=== PATIENT | female | born 1980 | race Caucasian/White ===

== ENCOUNTER 2023-11-01 20:50 | Outpatient (REF) | payer SELFPAY ==
[2023-11-07 11:09] LABS: Age Gdln ACOG Testing Note (.); HPV Aptima Negative (Negative); IGP, Aptima HPV, rfx 16/18,45 Note (.)
== END 2023-11-01 20:51 | disposition home or self-care (01) ==
LOC: LAB 20:50
PROVIDERS: PCP Family Medicine; Visit Provider Obstetrics & Gynecology
DX: Z01.419 Encounter for gynecological examination (general) (routine) without abnormal findings (principal)
CPT/HCPCS: 87624; G0145

== ENCOUNTER 2023-11-17 10:03 | Outpatient (OUT) | payer BC, SELFPAY ==
--- NOTE | 2023-11-17 10:09 | US_ITS ---
The [address] [address] Patient Name: CHANDRAKANT COLIN MRN: [id number] date: 1980 Sex: F Assigned Patient Location: US Current Patient Location: US Accession/Order Number: [id number] Exam Date: 11/17/2023 10:10 Report Date: 11/17/2023 12:09 At the request of: TERESITA ANDRE Procedure: US pelvis w/ transvaginal EXAMINATION: US pelvis w/ transvaginal HISTORY: Periumbilical Abdominal Pain R10.33 COMPARISON: No relevant comparison available. FINDINGS: Transabdominal and transvaginal images The uterus is surgically absent. The right ovary measures 3.8 x 2.5 x 3.4 cm. Normal color and Doppler flow. Area of anechoic echogenicity measuring 3.0 x 2.2 x 2.4 cm with no internal echoes. A simple cyst is favored. Additional areas of anechoic echogenicity likely follicles. The left ovary is normal in appearance measuring 2.3 x 1.5 x 1.3 cm. Normal color Doppler flow No free fluid. US/US pelvis w/ transvaginal IMPRESSION: 3 cm right ovarian simple cyst Electronically authenticated by: JOHANNA CASTILLO Date: 11/17/2023 12:09
--- NOTE | 2023-11-17 10:42 | MM_ITS ---
Patient Name: CHADNRAKANT COLIN MR#: [id number] : 1980 Exam Date: 11/17/2023 Ordering Doctor: DR Valentín Navarro . RADIOLOGY REPORT PROCEDURE: MM TOMOSYNTHESIS SCREENING BI COMPARISON: None. INDICATIONS: Screening Calculator Name NCI Breast Cancer Risk Assessment Tool 5 Year Breast Cancer Risk 0.50% Lifetime Breast Cancer Risk 8.20% Personal Breast Cancer No Personal Ovarian Cancer No Treatments None Family Cancers None LOCATION: [facility] BREAST COMPOSITION: There are scattered areas of fibroglandular density. FINDINGS: DIAGNOSTIC CATEGORY 0--INCOMPLETE: NEED ADDITIONAL IMAGING EVALUATION. Scattered benign-appearing calcifications are present. Scattered benign-appearing lymph nodes are present. RIGHT BREAST: 5 mm lobular circumscribed nodule identified in the upper inner quadrant anterior right breast. Spot imaging and ultrasound follow-up is recommended. LEFT BREAST: No significant suspicious finding. RECOMMENDATIONS: ADDITIONAL MAMMOGRAPHIC VIEWS REQUIRED: RIGHT BREAST - spot compression ULTRASOUND: RIGHT BREAST PLEASE NOTE: A NORMAL MAMMOGRAM DOES NOT EXCLUDE THE POSSIBILITY OF BREAST CANCER. A CLINICALLY SUSPICIOUS PALPABLE LUMP SHOULD BE BIOPSIED. Dictated by: Catracho Castro MD on 11/17/2023 at 12:18 Approved by: Catracho Castro MD on 11/17/2023 at 12:20
== END 2023-11-17 10:04 | disposition home or self-care (01) ==
LOC: US 10:03
PROVIDERS: PCP Family Medicine; Visit Provider Obstetrics & Gynecology
DX: R10.33 Periumbilical pain (principal); Z12.31 Encounter for screening mammogram for malignant neoplasm of breast; R61 Generalized hyperhidrosis; N63.12 Unspecified lump in the right breast, upper inner quadrant; N83.291 Other ovarian cyst, right side
CPT/HCPCS: 76830; 76856; 77063; 77067

== ENCOUNTER 2023-12-15 09:28 | Outpatient (OUT) | payer BC, SELFPAY ==
--- NOTE | 2023-12-15 09:32 | US_ITS ---
Patient Name: CHANDRAKANT COLIN MR#: [id number] : 1980 Exam Date: 12/15/2023 Ordering Doctor: DR Valentín Navarro . RADIOLOGY REPORT PROCEDURE: MM DIAGNOSTIC MAMMO UNILAT RT, 12/15/2023, 09:33 US BREAST RT LIMITED, 12/15/2023, 10:49 COMPARISON: MM TOMOSYNTHESIS SCREENING BI, 11/17/2023. INDICATIONS: Abnormal Mammogram R92.8 Calculator Name NCI Breast Cancer Risk Assessment Tool 5 Year Breast Cancer Risk 0.50% Lifetime Breast Cancer Risk 8.20% Personal Breast Cancer No Personal Ovarian Cancer No Treatments None Family Cancers None LOCATION: [facility] BREAST COMPOSITION: There are scattered areas of fibroglandular density. FINDINGS: DIAGNOSTIC CATEGORY 3--PROBABLY BENIGN FINDING. THE FOLLOWING FINDING(S) HAS A HIGH PROBABILITY OF A BENIGN ETIOLOGY: RIGHT BREAST: Spot magnification views demonstrate persistence of a 5 mm lobular mass within the lower-inner quadrant. Ultrasound evaluation demonstrates a lobular anechoic cystic appearing structure at the 3 o'clock position, 4 x 4 x 3 mm. Given its slightly lobular margins, ultrasound follow-up evaluation in 6 months is recommended to document stability. RECOMMENDATIONS: SHORT TERM FOLLOW-UP ULTRASOUND RIGHT BREAST IN 6 MONTHS. PLEASE NOTE: A NORMAL MAMMOGRAM DOES NOT EXCLUDE THE POSSIBILITY OF BREAST CANCER. A CLINICALLY SUSPICIOUS PALPABLE LUMP SHOULD BE BIOPSIED. Dictated by: Javi Vail M.D. on 12/15/2023 at 14:12 Approved by: Javi Vail M.D. on 12/15/2023 at 14:17
--- OUTSIDE RECORDS SUMMARY | 2023-12-15 09:43 | XMS_ITS ---
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 Phone DR ANGELA PORTILLO Attending Unavailable BANDAR, DR ANGELA Clinton Consulting Unavailable BANDAR, DR ANGELA Clinton Primary Care Unavailable BANDAR, DR ANGELA Clinton Admitting Unavailable TERESITA ANDRE Attending Unavailable Encounters Encounter Date Encounter Type Care Provider Facility Start: 11-01-2023 End: 11-01-2023 ambulatory TERESITA ANDRE Not Available Start: 08-10-2022 Encounter for genera l adult medical examination without abnormal findings DR ANGELA PORTILLO [facility] Start: 08-09-2022 End: 08-10-[address] ANGELA PORTILLO Facility:[facility] Start: 08-09-2022 End: 08-10-2022 Encounter for general adult medical examination without abnormal findings DR ANGELA PORTILLO Facility:[facility] Payers Date Payer Category Payer Unknown [id number] 1980 Unknown [id number] 1980 Unknown [id number] 1957 Unknown [id number] Problems Problem Classification Problem Date Documented Da te Episodic/Chronic Coagulation and hemorrhagic disorders (1 source) Spontaneous ecchymoses; Translations: [SPONTANEOUS ECCHYMOSES] Onset: 08-10-2022 Episodic Residual codes; unclassified (1 source) Flushing; Translations: [FLUSHING] Onset: 08-10-2022 Episodic Results Test Name Value Interpretation Reference Range Facil ity FOREIGN by IFAon 08-11-2022 Antinuclear Antibodies, IFA Negative Normal [facility] Comment on above: Result Comment: Nega tive <1:80 Borderline 1:80 Positive >1:80 ICAP nomenclature: AC-0 For more information about Hep-2 cell patterns use ANApatterns.org, the official website for the International Consensus on Antinuclear Antibody (FOREIGN) Patterns (ICAP). Performed By: #### [facility] #### [facility] [address] [place] [address] Dr. Alba Valdivia ESTRONEon 08-11-2022 Estrone, Serum 47 pg/mL Normal 27-231 [facility] Comment on above: Result Comment: Rang e Adult (Premenopausal) 27 - 231 Menstrual Cycle (1-10 days) 19 - 149 Menstrual Cycle (11-20 days) 32 - 176 Menstrual Cycle (21-30 days) 37 - 200 Performed By: #### Hemal HAYNES #### [facility] [address] [place] [address] Dr. Alba Valdivia DHEA-SULFATEon 08-10-2022 DHEA-Sulfate 225.0 ug/dL Normal 57.3-279.2 [facility] Comment on above: Performed By: #### L [facility] #### [facility] [address] [place] [address] Dr. Alba Valdivia ESTRADIOLon 08-10-2022 Estradiol 119.0 pg/mL Normal [facility] Comment on above: Result Comment: Adul t Female: Follicular phase 12.5 - 166.0 Ovulation phase 85.8 - 498.0 Luteal phase 43.8 - 211.0 Postmenopausal <6.0 - 54.7 1st trimester 215.0 - >4300.0 [employer] ECLIA methodology Performed By: #### E STRADI #### [facility] [address] [place] [address] Dr. Alba Valdivia FSHon 08-10-2022 FSH 13.5 mIU/mL Normal [facility] Comment on above: Result Comment: Adul t Female: Follicular phase 3.5 - 12.5 Ovulation phase 4.7 - 21.5 Luteal phase 1.7 - 7.7 Postmenopausal 25.8 - 134.8 Performed By: #### L MATEO #### [facility] [address] [place] [address] Dr. Alba Valdivia LUTEINIZING HORMONE (LH)on 0 1-25-2023 LH 8.3 mIU/mL Normal [facility] Comment on above: Result Comment: Adul t Female: Follicular phase 2.4 - 12.6 Ovulation phase 14.0 - 95.6 Luteal phase 1.0 - 11.4 Postmenopausal 7.7 - 58.5 Performed By: #### L BCLH #### [facility] [address] [place] [address] Dr. Alba Valdivia PROLACTINon 08-10-2022 Prolactin 10.9 ng/mL Normal 4.8-23.3 [facility] Comment on above: Performed By: #### P ROLAC #### [facility] [address] [place] [address] Dr. Alba Valdivia TESTOSTERONE, TOTALon 2022 Testosterone [Mass/Vol] 28 ng/dL Normal 8-60 [facility] Comment on above: Performed By: #### T ESTTOT #### [facility] [address] [place] [address] Dr. Alba Valdivia CBC AUTO DIFFon 08-09-2022 BASO # 0.1 103/ul Normal 0.0-0.1 [facility] Comment on above: Performed By: #### C BC #### [facility] [address] [place] [address] Dr. Alba Valdivia Basophils/100 WBC (Bld) 0.5 % Normal 0.2-2.0 [facility] Comment on above: Performed By: #### C BC #### [facility] [address] [place] [address] Dr. Alba Valdivia EO # 0.2 103/ul Normal 0.0-0.7 [facility] Comment on above: Performed By: #### C BC #### [facility] [address] [place] [address] Dr. Alba Valdivia Eosinophils/100 WBC (Bld) 1.6 % Normal 0.9-7.0 [facility] Comment on above: Performed By: #### C BC #### [facility] [address] [place] [address] Dr. Alba Valdivia Erythrocyte distribution width (RBC) [Ratio] 13.1 % Normal 11.0-15.0 [facility] Comment on above: Performed By: #### C BC #### [facility] [address] [place] [address] Dr. Alba Valdivia Hematocrit (Bld) [Volume fraction] 36.6 % Normal 36.0-48.0 [facility] Comment on above: Performed By: #### C BC #### [facility] [address] [place] [address] Dr. Alba Valdivia Hemoglobin (Bld) [Mass/Vol] 12.9 g/dL Normal 12.0-16.0 [facility] Comment on above: Performed By: #### C BC #### [facility] [address] [place] [address] Dr. Alba Valdivia IG # 0.03 10e3/ul Normal 0.00-0.03 [facility] Comment on above: Performed By: #### C BC #### [facility] [address] [place] [address] Dr. Alba Valdivia IG % 0.3 % Normal 0.0-0.5 [facility] Comment on above: Performed By: #### C BC #### [facility] [address] [place] [address] Dr. Alba Valdivia LYMPH # 3.1 103/ul Normal 1.2-3.8 [facility] Comment on above: Performed By: #### C BC #### [facility] [address] [place] [address] Dr. Alba Valdivia Lymphocytes/100 WBC (Bld) 27.4 % Normal 20.5-60.0 [facility] Comment on above: Performed By: #### C BC #### [facility] [address] [place] [address] Dr. Alba Valdivia MANUAL DIFF REQ NO Normal [facility] Comment on above: Performed By: #### C BC #### [facility] [address] [place] [address] Dr. Alba Valdivia MCH (RBC) [Entitic mass] 33.2 pg Normal 26.7-34.0 [facility] Comment on above: Performed By: #### C BC #### [facility] [address] [address] [address] Alba Valdivia MCHC (RBC) [Mass/Vol] 35.2 g/dL Normal 29.9-35.2 [facility] Comment on above: Performed By: #### C BC #### [facility] [address] [address] [address] Alba Valdivia MCV (RBC) [Entitic vol] 94.1 fL Normal 81.0-99.0 [facility] Comment on above: Performed By: #### C BC #### [facility] [address] [address] [address] Alba Valdivia MONO # 0.6 103/ul Normal 0.3-0.8 [facility] Comment on above: Performed By: #### C BC #### [facility] [address] [address] [address] Alba Valdivia Monocytes/100 WBC (Bld) 4.9 % Normal 1.7-12.0 [facility] Comment on above: Performed By: #### C BC #### [facility] [address] [address] [address] Alba Valdivia NEUT # 7.4 103/ul Critically high 1.4-6.5 [facility] Comment on above: Performed By: #### C BC #### [facility] [address] [address] [address] Alba Valdivia Neutrophils/100 WBC (Bld) 65.3 % Normal 43.0-75.0 [facility] Comment on above: Performed By: #### C BC #### [facility] [address] [address] [address] Alba Valdivia Platelet mean volume (Bld) [Entitic vol] 8.8 fL Critically low 9.5-13.5 [facility] Comment on above: Performed By: #### C BC #### [facility] [address] [address] [address] Alba Valdivia PLT 367 103/ul Normal 150-450 [facility] Comment on above: Performed By: #### C BC #### [facility] [address] [address] [address] Alba Valdivia RBC 3.89 106/ul Critically low 4.20-5.40 [facility] Comment on above: Performed By: #### C BC #### [facility] [address] [address] [address] Alba Valdivia WBC 11.3 103/ul Critically high 4.0-11.0 [facility] Comment on above: Performed By: #### C BC #### [facility] [address] [address] [address] Alba Valdivia CRPon 08-09-2022 CRP [Mass/Vol] mg/L Normal <=1.0 [facility] Comment on above: Performed By: #### L BCFSH #### [facility] [address] [address] [address] Alba Valdivia FREE T3on 08-09-2022 FREE T3 2.31 pg/mlL Normal 2.18-3.98 [facility] Comment on above: Performed By: #### L BCFSH #### [facility] [address] [place] [address] Dr. Alba Valdivia FREE T4on 08-09-2022 Free T4 [Mass/Vol] 0.99 ng/dL Normal 0.76-1.46 [facility] Comment on above: Performed By: #### F T4 #### [facility] [address] [address] [address] Alba Valdivia GLYCOHEMOGLOBIN A1Con 2022 ADA RECOMMENDATION SEE BELOW Normal [facility] Comment on above: Result Comment: ADA RECOMMENDED LIMIT 4.0 - 6.0 ADA THERAPEUTIC TARGET < 7.0 ACTION SUGGESTED > 7.0 Performed By: #### A 1C #### [facility] [address] [place] [address] Dr. Alba Valdivia Glucose [Mass/Vol] 103 mg/dL Normal [facility] Comment on above: Performed By: #### A 1C #### [facility] [address] [address] [address] Alba Valdivia HbA1c (Bld) [Mass fraction] 5.2 % Normal 4.5-6.2 [facility] Comment on above: Performed By: #### A 1C #### [facility] [address] [address] [address] Alba Valdivia LIPID PROFILEon 08-09-2022 CHOL-HDL RATIO NORM SEE BELOW Normal [facility] Comment on above: Result Comment: 3.3 - 4.4 LOW RISK 4.4 - 7.1 AVERAGE RISK 7.1 - 11.0 MODERATE RISK >11.0 HIGH RISK Performed By: #### L BCFSH #### [facility] [address] [address] [address] Alba Valdivia Cholesterol [Mass/Vol] 126 mg/dL Normal <=200 [facility] Comment on above: Performed By: #### L BCFSH #### [facility] [address] [address] [address] Alba Valdivia Cholesterol in HDL [Mass/Vol] 50 mg/dL Normal 40-60 [facility] Comment on above: Performed By: #### L BCFSH #### [facility] [address] [address] [address] Alba Valdivia Cholesterol in LDL [Mass/Vol] 65.4 mg/dL Normal [facility] Comment on above: Performed By: #### L BCFSH #### [facility] [address] [address] [address] Alba Valdivia Cholesterol.total/Cho lesterol in HDL [Mass ratio] 2.5 {ratio} Normal [facility] Comment on above: Performed By: #### L BCFSH #### [facility] [address] [id number] Alba Valdivia HDL NORMAL > or = 60 mg/dl - LOW CARDIOVASCULAR RISK <40 mg/dl - HIGH CARDIOVASCULAR RISK Normal [facility] Comment on above: Performed By: #### L BCFSH #### [facility] [address] [address] [address] Alba Valdivia LDL CALC NORMAL SEE BELOW Normal [facility] Comment on above: Result Comment: <100 mg/dl OPTIMAL 100 - 129 mg/dl NEAR OR ABOVE OPTIMAL 130 - 159 mg/dl BORDERLINE HIGH 160 - 189 mg/dl HIGH >190 mg/dl VERY HIGH Performed By: #### L BCFSH #### [facility] [address] [address] [address] Alba Valdivia Triglyceride [Mass/Vol] 53 mg/dL Normal <=150 [facility] Comment on above: Performed By: #### L BCFSH #### [facility] [address] [address] [address] Alba Valdivia VLDL CALC 10.6 mg/dL Normal [facility] Comment on above: Performed By: #### L BCFSH #### [facility] [address] [place] [address] Dr. Alba Valdivia LIVER PROFILEon 08-09-2022 Albumin [Mass/Vol] 4.1 g/dL Normal 3.4-5.0 [facility] Comment on above: Performed By: #### L BCFSH #### [facility] [address] [place] [address] Dr. Alba Valdivia Albumin/Globulin [Mass ratio] 1.1 {ratio} Normal [facility] Comment on above: Performed By: #### L BCFSH #### [facility] [address] [place] [address] Dr. Alba Valdivia ALP [Catalytic activity/Vol] 60 U/L Normal 46-116 [facility] Comment on above: Performed By: #### L BCFSH #### [facility] [address] [place] [address] Dr. Alba Valdivia ALT [Catalytic activity/Vol] 21 U/L Normal 14-59 [facility] Comment on above: Performed By: #### L BCFSH #### [facility] [address] [place] [address] Dr. Alba Valdivia AST [Catalytic activity/Vol] 16 U/L Normal 15-37 [facility] Comment on above: Performed By: #### L BCFSH #### [facility] [address] [place], [place] [id number] Dr. Alba Valdivia BILI, CONJUGATED 0.1 mg/dL Normal 0.0-0.2 [facility] Comment on above: Performed By: #### L BCFSH #### [facility] [address] [place] [address] Dr. Alab Valdivia Bilirubin [Mass/Vol] 0.2 mg/dL Normal 0.2-1.0 [facility] Comment on above: Performed By: #### L BCFSH #### [facility] [address] [place] [address] Dr. Alba Valdivia Globulin (S) [Mass/Vol] 3.6 g/dL Normal [facility] Comment on above: Performed By: #### L BCFSH #### [facility] [address] [place] [address] Dr. Alba Valdivia Protein [Mass/Vol] 7.7 g/dL Normal 6.4-8.2 [facility] Comment on above: Performed By: #### L BCFSH #### [facility] [address] [place] [address] Dr. Alba Valdivia PROF CHEM 8 (BAS METB)on Anion gap [Moles/Vol] 14.0 mmol/L Normal [facility] Comment on above: Performed By: #### L BCFSH #### [facility] [address] [place] [address] Dr. Alba Valdivia Calcium [Mass/Vol] 8.9 mg/dL Normal 8.5-10.1 [facility] Comment on above: Performed By: #### L BCFSH #### [facility] [address] [place] [address] Dr. Alba Valdivia Chloride [Moles/Vol] 102 mmol/L Normal 98-107 [facility] Comment on above: Performed By: #### L BCFSH #### [facility] [address] [place] [address] Dr. Alba Valdivia CO2 [Moles/Vol] 25.0 mmol/L Normal 21.0-32.0 [facility] Comment on above: Performed By: #### L BCFSH #### [facility] [address] [address] [address] Alba Valdivia Creatinine [Mass/Vol] 0.58 mg/dL Normal 0.55-1.02 [facility] Comment on above: Performed By: #### L BCFSH #### [facility] [address] [place] [address] Dr. Alba Valdivia EGFR-AF MALAYSIAN >60 Normal >=60 [facility] Comment on above: Result Comment: Prev iously reported as: (blank) On 08/09/2022 11:11 By KD3 Performed By: #### L BCFSH #### [facility] [address] [place] [address] Dr. Alba Valdivia EGFR-NON AF MALAYSIAN >60 Normal >=60 [facility] Comment on above: Result Comment: Prev iously reported as: (blank) On 08/09/2022 11:11 By KD3 Performed By: #### L BCFSH #### [facility] [address] [place] [address] Dr. Alba Valdivia Glucose [Mass/Vol] 97 mg/dL Normal 74-106 [facility] Comment on above: Performed By: #### L BCFSH #### [facility] [address] [place] [address] Dr. Alba Valdivia Potassium [Moles/Vol] 4.0 mmol/L Normal 3.5-5.1 [facility] Comment on above: Performed By: #### L BCFSH #### [facility] [address] [place] [address] Dr. Alba Valdivia Sodium [Moles/Vol] 137 mmol/L Normal 136-145 [facility] Comment on above: Performed By: #### L BCFSH #### [facility] [address] [place] [address] Dr. Alba Valdivia Urea nitrogen [Mass/Vol] 12.0 mg/dL Normal 7.0-18.0 [facility] Comment on above: Performed By: #### L BCFSH #### [facility] [address] [place] [address] Dr. Alba Valdivia Urea nitrogen/Creatinine [Mass ratio] 20.7 mg/mg Normal [facility] Comment on above: Performed By: #### L BCFSH #### [facility] [address] [place] [address] Dr. Alba Valdivia PROTIMEon 08-09-2022 INR Coag (PPP) [Relative time] 0.97 {INR} Normal [facility] Comment on above: Performed By: #### L BCFSH #### [facility] [address] [place] [address] Dr. Alba Valdivia INR GUIDELINES SEE BELOW Normal [facility] Comment on above: Result Comment: BROCK RED INR: 2.0 - 3.0 CONDITIONS NOT LISTED BELOW 2.5 - 3.5 FOR PROSTHETIC HEART VALVE REPLACEMENT 2.5 - 3.5 RECURRENT THROMBOSIS Performed By: #### L ANTOINETTEFSH #### [facility] [address] [place] [address] Dr. Alba Valdivia PT Coag (PPP) [Time] 10.3 s Normal 9.0-11.6 [facility] Comment on above: Performed By: #### L ANTOINETTEFSH #### [facility] [address] [place] [address] Dr. Alba Valdivia SED RATE CARLISLEERGRENon 2022 SED RATE 8 mm/hr Normal <=20 [facility] Comment on above: Performed By: #### S EDR #### [facility] [address] [place] [address] Dr. Alba Valdivia TSHon 08-09-2022 TSH 1.420 uIU/mL Normal 0.358-3.740 [facility] Comment on above: Performed By: #### L BCFSH #### [facility] [address] [place] [address] Dr. Alba Valdivia Summary Purpose Family History No Family History Records FoundNo Family History Records Found Advance Directives No Advanced Directives Records FoundNo Advanced Directives Records Found Additional Source Comments INFORMATION SOURCE (unrecogn ized section and content) DATE CREATED AUTHOR 08/11/2022 [facility] DATE CREATED AUTHOR AUTHOR'S ORGANIZ ATION 11/02/2023 [facility] FOR RECORDS PERTAINING TO PATIENTS WHO ARE OR HAVE BEEN ENROLLED IN A CHEMICAL DEPENDENCY/SUBSTANCEABUSE PROGRAM, SOME INFORMATION MAY BE OMITTED. This clinical summary was aggregated from multiple sources. Caution should be exercised in using it in the provision of clinical care. This summary normalizes information from multiple sources, and as a consequence, information in this document may materially change the coding, format and clinical context of patient data. In addition, data may be omitted in some cases. CLINICAL DECISIONS SHOULD BE BASED ON THE PRIMARY CLINICAL RECORDS. [facility] [employer] [facility]. provides no warranty or guarantee of the accuracy or completeness of information in this document.
== END 2023-12-15 09:29 | disposition home or self-care (01) ==
LOC: MAMMO 09:28
PROVIDERS: PCP Family Medicine; Visit Provider Obstetrics & Gynecology
DX: R92.8 Other abnormal and inconclusive findings on diagnostic imaging of breast (principal); N63.14 Unspecified lump in the right breast, lower inner quadrant
CPT/HCPCS: 76642; 77065